=== PATIENT | female | born 1995 | race Hispanic/Latino ===

== ENCOUNTER 2020-11-14 02:45 | Emergency (ER) | payer MEDICAID ==
[2020-11-14 02:54] VITALS: BP 115/87
--- NOTE | 2020-11-14 05:12 | Event Note ---
ED Screening Note Date of service: 11/14/20 Time: 05:11 ED Screening Note: 25-year-old female patient with history of hypothyroidism, PTSD, and recurrent migraines presents to the emergency department with complaints of headache with associated nausea for 1 week. Patient states this headache has been occurring primarily at nighttime and is consistent with prior migraine headaches. Patient recently relocated to the area and is in the process of establishing care with a neurologist. Unsure if . General: Awake, appropriately interactive, no acute distress. Neck: Supple. Full range of motion intact. Cardiovascular: Normal peripheral perfusion. Pulmonary: No respiratory distress. Patient is speaking normally without use of accessory muscles. Skin: No apparent rashes or lesions. Neurological: No facial asymmetry. Speech is clear. Follows commands. Patient is alert and oriented. Musculoskeletal: Moves all four extremities spontaneously with normal range of motion. Psych: Cooperative. Appropriate mood and affect. I have greeted and performed a focused rapid initial assessment of this patient. A comprehensive ED assessment and evaluation of the patient, analysis of all test results, and completion of the medical decision-making process will be conducted by additional ED providers. This initial assessment/diagnostic orders/clinical plan/treatment(s) is/are subject to change based on patients health status, clinical progression and re-assessment. Further treatment and workup at subsequent clinical provider's discretion. Patient/guardian urged not to elope from the ED as their condition may be serious if not clinically assessed and managed.
[2020-11-14 06:25] LABS: HCG Qualitative,Urine Negative (Negative)
--- NOTE | 2020-11-14 07:06 | Emergency Department Report ---
ED Headache HPI - General Chief Complaint: Headache Stated Complaint: MIGRAINE/NAUSEA Time Seen by Provider: 11/14/20 06:55 - History of Present Illness Initial Comments: 25-year-old female patient with history of hypothyroidism, PTSD, and recurrent migraines presents to the emergency department with complaints of headache with associated nausea for 1 week. Patient states this headache has been occurring primarily at nighttime and is consistent with prior migraine headaches. Patient recently relocated to the area and is in the process of establishing care with a neurologist. Unsure if . Patient states she usually takes Excedrin but has not taken anything in months. Patient states she did not have any money to take Excedrin. Patient is sleeping comfortably in room 45, snoring and had to arouse her to wake up. Patient has had no episodes of vomiting. Able to sleep comfortably. Allergies/Adverse Reactions: Allergies pork derived (porcine) Allergy (Verified 11/14/20 02:49) Unknown shellfish derived Allergy (Verified 11/14/20 02:49) Unknown ED Review of Systems ROS: Stated complaint: MIGRAINE/NAUSEA Other details as noted in HPI Comment: All other systems reviewed and negative ED Past Medical Hx - Past Medical History Previous Medical History?: Yes Hx Psychiatric Treatment: Yes (PTSD/) Additional medical history: Hypothyroidism - Surgical History Past Surgical History?: No ED Physical Exam - General Limitations: No Limitations General appearance: alert, in no apparent distress, other (Sleeping and snoring at the same time, but easily arousable) - Head Head exam: Present: atraumatic, normal inspection - Eye Eye exam: Present: normal appearance - ENT ENT exam: Present: normal external ear exam - Neck Neck exam: Present: normal inspection, full ROM - Respiratory Respiratory exam: Absent: respiratory distress, accessory muscle use - Cardiovascular Cardiovascular Exam: Present: regular rate - Neurological Exam Neurological exam: Present: alert, oriented X3, CN II-XII intact, normal gait - Expanded Neurological Exam Expanded Cranial nerves: EOM's Intact: Normal, Gag Reflex: Normal, Tongue Deviation: Normal, Nystagmus: Normal, Facial Sensation: Normal, Facial Palsy with Forehead Movement: Normal, Facial Palsy without Forehead Movement: Normal Cerebellar function: Finger to Nose: Normal, Heel to Jose: Normal, Romberg: Normal Upper motor neuron: Lul Neglect: Normal, Pronator Drift: Normal, Babinski Sign: Normal, Sensory Extinction: Normal Sensory exam: Upper Extremity Light Touch: Normal, Upper Extremity Pin Prick: Normal, Upper Extremity Temperature: Normal, UE 2 Point Discrimination: Normal, Lower Extremity Light Touch: Normal, Lower Extremity Pin Prick: Normal, Lower Extremity Temperature: Normal, LE 2 Point Discrimination: Normal Motor strength exam: RUE: 4, LUE: 4, RLE: 4, LLE: 4 Best Eye Response ([place]): (4) open spontaneously Best Motor Response ([place]): (6) obeys commands Best Verbal Response ([place]): (5) oriented [place] Total: 15 - Psychiatric Psychiatric exam: Present: normal affect - Skin Skin exam: Present: warm, dry, intact, normal color. Absent: rash ED Course Vital Signs 11/14/20 02:52 Temperature 98.4 F Pulse Rate 79 Respiratory 19 Rate Blood Pressure 115/87 ED Medical Decision Making - Medical Decision Making 25-year-old female patient with history of hypothyroidism, PTSD, and recurrent migraines presents to the emergency department with complaints of headache with associated nausea for 1 week. Patient states this headache has been occurring primarily at nighttime and is consistent with prior migraine headaches. Patient recently relocated to the area and is in the process of establishing care with a neurologist. Unsure if . Patient cannot recall maximal intensity of headache. She denies worst headache of her life. She denies any injury to her head. Nothing makes it worse. Taking her migraine medication does help but she has not taken it. Patient states she usually takes Excedrin but has not taken anything in months. Patient states she did not have any money to take Excedrin. Patient is sleeping comfortably in room 45, snoring and had to arouse her to wake up. Patient has had no episodes of vomiting. Able to sleep comfortably. Critical care attestation.: If time is entered above; I have spent that time in minutes in the direct care of this critically ill patient, excluding procedure time. ED Disposition Clinical Impression: Headache Disposition: DC-01 TO HOME OR SELFCARE Is pt being admited?: No Does the pt Need Aspirin: No Condition: Stable Additional Instructions: Take [id number] Excedrin or ibuprofen for your headache. Follow-up with a primary care provider. Referrals: PRIMARY MD ERIN [Primary Care Provider] - 3-5 Days [facility] [Provider Group] - 3-5 Days
[2020-11-14] MEDS ORDERED: IBUPROFEN 600 MG TAB PO ONE (07:10)
== END 2020-11-14 09:08 | disposition home or self-care (01) ==
LOC: ED 02:45
DX: R51.9 Headache, unspecified (principal); F43.10 Post-traumatic stress disorder, unspecified; E03.9 Hypothyroidism, unspecified; X58.XXXA Exposure to other specified factors, initial encounter; Y93.89 Activity, other specified; Y92.89 Other specified places as the place of occurrence of the external cause; Y99.8 Other external cause status
CPT/HCPCS: 81025; 99283

== ENCOUNTER 2020-11-30 14:44 | Emergency (ER) | payer MEDICAID ==
[2020-11-30 15:21] VITALS: BP 128/82
[2020-11-30] MEDS ORDERED: ONDANSETRON 4 MG ODT TAB PO ONE (16:14)
--- NOTE | 2020-11-30 16:14 | Event Note ---
ED Screening Note ED Screening Note: n/v/d that began 3 days ago +sick contact with cough occ dry cough +SOB no fever no COVID vaccine PMHx hashimotos thyroiditis, PTSD, panic attack, MDD no allergies to meds currently on menstrual cycle This initial assessment/diagnostic orders/clinical plan/treatment(s) is/are subject to change based on patients health status, clinical progression and re- assessment by fellow clinical providers in the ED. Further treatment and workup at subsequent clinical providers discretion. Patient/guardian urged not to elope from the ED as their condition may be serious if not clinically assessed and managed. Initial orders include: labs, xr
[2020-11-30] MEDS ORDERED: ONDANSETRON 4 MG ODT TAB ONE (16:15)
[2020-11-30 17:06] LABS: Basophils % (Auto) 0.5 % (0.0-1.8); Eosinophils % (Auto) 0.6 % (0.0-4.3); Hematocrit 49.7 % (30.3-42.9); Hemoglobin 16.2 gm/dl (10.1-14.3); Lymphocytes # (Auto) 2.4 K/mm3 (1.2-5.4); Lymphocytes % (Auto) 29.5 % (13.4-35.0); Mean Corpuscular HGB Conc 33 % (30-34); Mean Corpuscular Volume 77 fl (79-97); Monocytes # (Auto) 0.6 K/mm3 (0.0-0.8); Monocytes % (Auto) 7.4 % (0.0-7.3); Platelet Count 370 K/mm3 (140-440); Red Blood Count 6.44 M/mm3 (3.65-5.03); Red Cell Distribution Width 15.2 % (13.2-15.2)
[2020-11-30 17:37] LABS: Alanine Aminotransferase 112 units/L (7-56); Albumin 4.3 g/dL (3.9-5); BUN/Creatinine Ratio 10; Blood Urea Nitrogen 9 mg/dL (7-17); Calcium 9.6 mg/dL (8.4-10.2); Hemolysis Index 7
--- NOTE | 2020-11-30 18:17 | XRay Report ---
CHEST PA AND LATERAL VIEWS INDICATION: cough, SOB. COMPARISON: None. FINDINGS: Support devices: None. Heart: Within normal limits. Lungs/Pleura: There is subtle airspace disease in the right upper lobe. There may be mild airspace di sease in the right lower lobe as well. No pleural abnormality. IMPRESSION: 1. Subtle right lower lobe airspace disease is concerning for pneumonia. There is also questionable p neumonia in the right lung base. Signer Name: Jean Vela MD Signed: 11/30/2020 6:12 PM Workstation Name: [id number]
--- NOTE | 2020-11-30 18:51 | Emergency Department Report ---
ED General Adult HPI - General Chief complaint: Nausea/Vomiting/Diarrhea Stated complaint: NAUSEA/VOMITING Time Seen by Provider: 11/30/20 16:11 Source: patient Mode of arrival: Ambulatory Limitations: No Limitations - History of Present Illness Initial comments: 25-year-old female patient with a history of Taylor's thyroiditis, PTSD, anxiety disorder, and MDD presents with complaints of a dry cough and shortness of breath for the past 8 to 9 days and nausea/vomiting/diarrhea x3 days. She denies any hematemesis/coffee-ground emesis, abdominal pain, melena/hematochezia, or fever. No recent known sick contacts. Patient does admit to 1 day of loss of taste and smell. She has not been tested for Covid or receive the Covid vaccine. She denies any chest pain or hemoptysis. - Related Data Previous Rx's Medication Instructions Recorded Last Taken Type Amoxicillin/Potassium Clav 1 each PO BID 10 Days #20 tablet 11/30/20 Unknown Rx [Augmentin 875-125 Tablet] Azithromycin [Zithromax Z-ALLAN] 0 mg PO DAILY 5 Days #6 tab 11/30/20 Unknown Rx Promethazine HCl [Promethazine TAB] 12.5 - 25 mg PO [id number] PRN #20 tab 11/30/20 Unknown Rx predniSONE [Deltasone] 20 mg PO QDAY 3 Days #3 tab 11/30/20 Unknown Rx Allergies Allergy/AdvReac Type Severity Reaction Status Date / Time pork derived (porcine) Allergy Unknown Verified 11/30/20 15:17 shellfish derived Allergy Unknown Verified 11/30/20 15:17 ED Review of Systems ROS: Stated complaint: NAUSEA/VOMITING Other details as noted in HPI Constitutional: chills, malaise, weakness. denies: diaphoresis, fever ENT: denies: throat pain Respiratory: cough, shortness of breath Cardiovascular: denies: chest pain, edema, paroxysmal nocturnal dyspnea Gastrointestinal: nausea, vomiting, diarrhea. denies: abdominal pain, constipa tion, hematemesis, melena, hematochezia ED Past Medical Hx - Past Medical History Hx Psychiatric Treatment: Yes (PTSD/) Additional medical history: Hypothyroidism/CHRONIC BACK - Surgical History Past Surgical History?: No - Social History Smoking Status: Current Some Day Smoker Substance Use Type: None - Medications Home Medications: Home Medications Medication Instructions Recorded Confirmed Last Taken Type Amoxicillin/Potassium Clav 1 each PO BID 10 Days #20 tablet 11/30/20 Unknown Rx [Augmentin 875-125 Tablet] Azithromycin [Zithromax Z-ALLAN] 0 mg PO DAILY 5 Days #6 tab 11/30/20 Unknown Rx Promethazine HCl [Promethazine TAB] 12.5 - 25 mg PO [id number] PRN #20 tab 11/30/20 Unknown Rx predniSONE [Deltasone] 20 mg PO QDAY 3 Days #3 tab 11/30/20 Unknown Rx ED Physical Exam - General Limitations: No Limitations General appearance: alert, in no apparent distress, obese - Head Head exam: Present: atraumatic, normocephalic - Eye Eye exam: Present: normal appearance. Absent: scleral icterus - Respiratory Respiratory exam: Present: normal lung sounds bilaterally. Absent: respiratory distress - Cardiovascular Cardiovascular Exam: Present: regular rate, normal rhythm - GI/Abdominal GI/Abdominal exam: Present: soft, normal bowel sounds. Absent: distended, tenderness, guarding, rebound, rigid - Extremities Exam Extremities exam: Present: full ROM - Back Exam Back exam: Present: full ROM - Neurological Exam Neurological exam: Present: alert, oriented X3 - Psychiatric Psychiatric exam: Present: normal affect, normal mood - Skin Skin exam: Present: warm, dry, intact, normal color. Absent: rash ED Course Vital Signs 11/30/20 15:20 Temperature 98.0 F Pulse Rate 93 H Respiratory 18 Rate Blood Pressure 128/82 O2 Sat by Pulse 98 Oximetry ED Medical Decision Making - Lab Data Result diagrams: 11/30/20 16:35 11/30/20 16:35 Lab Results 11/30/20 11/30/20 11/30/20 Range/Units 16:35 16:35 16:35 WBC 8.1 (4.5-11.0) K/mm3 RBC 6.44 H (3.65-5.03) M/mm3 Hgb 16.2 H (10.1-14.3) gm/dl Hct 49.7 H (30.3-42.9) % MCV 77 L (79-97) fl MCH 25 L (28-32) pg MCHC 33 (30-34) % RDW 15.2 (13.2-15.2) % Plt Count 370 (140-440) K/mm3 Lymph % (Auto) 29.5 (13.4-35.0) % Davidson % (Auto) 7.4 H (0.0-7.3) % Eos % (Auto) 0.6 (0.0-4.3) % Baso % (Auto) 0.5 (0.0-1.8) % Lymph # (Auto) 2.4 (1.2-5.4) K/mm3 Davidson # (Auto) 0.6 (0.0-0.8) K/mm3 Eos # (Auto) 0.0 (0.0-0.4) K/mm3 Baso # (Auto) 0.0 (0.0-0.1) K/mm3 Seg Neutrophils % 62.0 (40.0-70.0) % Seg Neutrophils # 5.0 (1.8-7.7) K/mm3 Sodium 143 (137-145) mmol/L Potassium 3.7 (3.6-5.0) mmol/L Chloride 105.8 (98-107) mmol/L Carbon Dioxide 20 L (22-30) mmol/L Anion Gap 21 mmol/L BUN 9 (7-17) mg/dL Creatinine 0.9 (0.6-1.2) mg/dL Estimated GFR > 60 ml/min BUN/Creatinine Ratio 10 % Glucose 99 (65-100) mg/dL Calcium 9.6 (8.4-10.2) mg/dL Total Bilirubin 0.70 (0.1-1.2) mg/dL AST 60 H (5-40) units/L ALT 112 H (7-56) units/L Alkaline Phosphatase 113 (35-129) units/L Total Protein 8.2 (6.3-8.2) g/dL Albumin 4.3 (3.9-5) g/dL Albumin/Globulin Ratio 1.1 % Lipase 26 (13-60) units/L HCG, Qual Negative (Negative) - Radiology Data Radiology results: report reviewed CHEST PA AND LATERAL VIEWS INDICATION: cough, SOB. COMPARISON: None. FINDINGS: Support devices: None. Heart: Within normal limits. Lungs/Pleura: There is subtle airspace disease in the right upper lobe. There may be mild airspace disease in the right lower lobe as well. No pleural abnormality. IMPRESSION: 1. Subtle right lower lobe airspace disease is concerning for pneumonia. There is also questionable pneumonia in the right lung base. - Medical Decision Making 25-year-old female patient with a history of Taylor's thyroiditis, PTSD, anxiety disorder, and MDD presents with complaints of a dry cough and shortness of breath for the past 8 to 9 days and nausea/vomiting/diarrhea x3 days. She denies any hematemesis/coffee-ground emesis, abdominal pain, melena/hematochezia, or fever. No recent known sick contacts. Patient does admit to 1 day of loss of taste and smell. She has not been tested for Covid or receive the Covid vaccine. She denies any chest pain or hemoptysis. Anion gap noted to be 21 and mildly elevated liver enzymes noted. White count is normal CBC. No tenderness of the abdomen noted on exam. Lungs are clear x- ray shows bilateral pneumonia. Given patient's history and labs, suspect COVID- 19 infection. Recommend patient follows up outpatient for testing. Patient ambulated and pulse ox remained at 100% on room air. Vitals are normal. She is stable for discharge home. Discussed importance of self quarantine, plan of care, and signs and symptoms that should prompt immediate return to the emergency department in detail patient verbalized understanding. Critical care attestation.: If time is entered above; I have spent that time in minutes in the direct care of this critically ill patient, excluding procedure time. ED Disposition Clinical Impression: Person under investigation for COVID-19, Community acquired pneumonia, bilateral Disposition: 01 HOME / SELF CARE / HOMELESS Is pt being admited?: No Condition: Stable Instructions: Bacterial Pneumonia (ED), Community-Acquired Pneumonia, Adult, [id number], Rehydration, Adult, COVID-19, Prevent the Spread of COVID-19 if You Are Sick - [facility] Additional Instructions: .Please take daily vitamin C and zinc to help fight the COVID-19 virus. High water intake also recommended along with Pedialyte for rehydration Prescriptions: Promethazine HCl [Promethazine TAB] 12.5 - 25 mg PO [id number] PRN #20 tab PRN Reason: Nausea Amoxicillin/Potassium Clav [Augmentin 875-125 Tablet] 1 each PO BID 10 Days #20 tablet predniSONE [Deltasone] 20 mg PO QDAY 3 Days #3 tab Azithromycin [Zithromax Z-ALLAN] 0 mg PO DAILY 5 Days #6 tab Referrals: PRIMARY CARE, [Referring] - 3-5 Days Forms: Work/School Release Form(ED)
[2020-11-30] MEDS ORDERED: SODIUM CHLORIDE 0.9% 1000 ML 1,000 ML IV ONE (18:53)
== END 2020-11-30 21:30 | disposition home or self-care (01) ==
LOC: ED 14:44
DX: J18.8 Other pneumonia, unspecified organism (principal); Z20.822 Contact with and (suspected) exposure to COVID-19; F43.10 Post-traumatic stress disorder, unspecified; E03.9 Hypothyroidism, unspecified; F17.200 Nicotine dependence, unspecified, uncomplicated; M54.9 Dorsalgia, unspecified; Z91.013 Allergy to seafood; Z91.018 Allergy to other foods
CPT/HCPCS: 36415; 71046; 80053; 83690; 84703; 85025; 96360; 99284; J7030; Q0162

== ENCOUNTER 2020-12-03 11:29 | Emergency (ER) | payer MEDICAID ==
[2020-12-03 12:22] VITALS: BP 140/91
--- NOTE | 2020-12-03 12:39 | Emergency Department Report ---
ED Shortness of Breath HPI - General Chief Complaint: Dyspnea/Respdistress Stated Complaint: SOB Time Seen by Provider: 12/03/20 12:39 Source: patient, EMS, old records reviewed Mode of arrival: Ambulatory Limitations: No Limitations - History of Present Illness Initial Comments: 25-year-old female with a past medical history of Taylor thyroiditis and tobacco use presents to the ER today with complaints of shortness of breath. Patient states that she has always had some issues with "difficulty breathing, but she states that she noticed over the past couple days she has had increased shortness of breath. She reports associated mild dry productive cough, rhinorrhea nasal congestion. She denies any fever or chills. She also reports difficulty eating because it is hard to breathe when she eats at the same time. She reports no apparent ill contacts or recent travel. She denies any chest pain, abdominal pain, UTI symptoms, lower extremity swelling, or calf pain. She reports no nausea or vomiting since she was last seen. Patient was seen here on November 30, 2020 for similar symptoms. At that time she had lab work and a chest x-ray done. Patient was diagnosed with suspected Covid and pneumonia and was discharged home in stable condition with Phenergan, Augmentin, Z-Allan and prednisone. Patient returns today stating that she was unable to get her medications. Patient states that she typically lives in a correction. She states that her past that has been helping her out, and she did give the prescriptions to her printed circuit photographer to get filled, but she states that she has not been able to get a hold of her printed circuit photographer to go get the prescription picked up from the pharmacy and she has no one else who can help her get the prescriptions. She states that she is currently at a hotel during her quarantine. She also has not been able to go get a COVID-19 test done. Complaint: shortness of breath -: Gradual - Related Data Previous Rx's Medication Instructions Recorded Last Taken Type Amoxicillin/Potassium Clav 1 each PO BID 10 Days #20 tablet 11/30/20 Unknown Rx [Augmentin 875-125 Tablet] Azithromycin [Zithromax Z-ALLAN] 0 mg PO DAILY 5 Days #6 tab 11/30/20 Unknown Rx Promethazine HCl [Promethazine TAB] 12.5 - 25 mg PO [id number] PRN #20 tab 11/30/20 Unknown Rx predniSONE [Deltasone] 20 mg PO QDAY 3 Days #3 tab 11/30/20 Unknown Rx Allergies Allergy/AdvReac Type Severity Reaction Status Date / Time pork derived (porcine) Allergy Unknown Verified 11/30/20 15:17 shellfish derived Allergy Unknown Verified 11/30/20 15:17 ED Review of Systems ROS: Stated complaint: SOB Other details as noted in HPI Comment: All other systems reviewed and negative Constitutional: denies: chills, fever Eyes: denies: eye pain, eye discharge, vision change ENT: denies: ear pain, throat pain Respiratory: shortness of breath, SOB with exertion, SOB at rest. denies: cough, wheezing Cardiovascular: denies: chest pain, palpitations Endocrine: no symptoms reported Gastrointestinal: denies: abdominal pain, nausea, vomiting, diarrhea, constipation, hematemesis, melena, hematochezia Genitourinary: denies: urgency, dysuria, discharge Musculoskeletal: denies: back pain, joint swelling, arthralgia Skin: denies: rash, lesions, change in color, change in hair/nails, pruritus Neurological: denies: headache, weakness, numbness, paresthesias, confusion, abnormal gait, vertigo Psychiatric: denies: anxiety, depression, auditory hallucinations, visual hallucinations, homicidal thoughts, suicidal thoughts Hematological/Lymphatic: denies: easy bleeding, easy bruising ED Past Medical Hx - Past Medical History Previous Medical History?: Yes Hx Psychiatric Treatment: Yes (PTSD/) Additional medical history: Hypothyroidism/CHRONIC BACK - Surgical History Past Surgical History?: No - Social History Smoking Status: Current Every Day Smoker Substance Use Type: Alcohol, Marijuana - Medications Home Medications: Home Medications Medication Instructions Recorded Confirmed Last Taken Type Amoxicillin/Potassium Clav 1 each PO BID 10 Days #20 tablet 11/30/20 Unknown Rx [Augmentin 875-125 Tablet] Azithromycin [Zithromax Z-ALLAN] 0 mg PO DAILY 5 Days #6 tab 11/30/20 Unknown Rx Promethazine HCl [Promethazine TAB] 12.5 - 25 mg PO [id number] PRN #20 tab 11/30/20 Unknown Rx predniSONE [Deltasone] 20 mg PO QDAY 3 Days #3 tab 11/30/20 Unknown Rx ED Physical Exam - General Limitations: No Limitations General appearance: alert, in no apparent distress, obese - Head Head exam: Present: atraumatic, normocephalic, normal inspection - Eye Eye exam: Present: normal appearance, PERRL, EOMI Pupils: Present: normal accommodation - Neck Neck exam: Present: normal inspection, full ROM. Absent: meningismus - Respiratory Respiratory exam: Present: normal lung sounds bilaterally, rhonchi (mild left lung kirby ). Absent: respiratory distress, wheezes, rales - Cardiovascular Cardiovascular Exam: Present: regular rate, normal rhythm, normal heart sounds - Extremities Exam Extremities exam: Present: normal inspection, full ROM. Absent: pedal edema, calf tenderness - Neurological Exam Neurological exam: Present: alert, oriented X3, CN II-XII intact, normal gait - Psychiatric Psychiatric exam: Present: normal affect, normal mood - Skin Skin exam: Present: intact ED Course Vital Signs 12/03/20 12:21 Temperature 98.6 F Pulse Rate 89 Respiratory 18 Rate Blood Pressure 140/91 O2 Sat by Pulse 95 Oximetry ED Medical Decision Making - Medical Decision Making 25-year-old female with a past medical history of Taylor thyroiditis and tobacco use presents to the ER today with complaints of shortness of breath. Patient states that she has always had some issues with "difficulty breathing, but she states that she noticed over the past couple days she has had increased shortness of breath. She reports associated mild dry productive cough, rhinorrhea nasal congestion. She denies any fever or chills. She also reports difficulty eating because it is hard to breathe when she eats at the same time. She reports no apparent ill contacts or recent travel. She denies any chest pain, abdominal pain, UTI symptoms, lower extremity swelling, or calf pain. She reports no nausea or vomiting since she was last seen. Patient was seen here on November 30, 2020 for similar symptoms. At that time she had lab work and a chest x-ray done. Patient was diagnosed with suspected Covid and pneumonia and was discharged home in stable condition with Phenergan, Augmentin, Z-Allan and prednisone. Patient returns today stating that she was unable to get her medications. Patient states that she typically lives in a correction. She states that her past that has been helping her out, and she did give the prescriptions to her printed circuit photographer to get filled, but she states that she has not been able to get a hold of her printed circuit photographer to go get the prescription picked up from the pharmacy and she has no one else who can help her get the prescriptions. She states that she is currently at a hotel during her quarantine. She also has not been able to go get a COVID-19 test done. 1246: Patient was ambulated by myself in the ER, patient oxygen maintained between 94% and 97% on RA while ambulating. She did not appear to be in any significant respiratory distress. She was able to ambulate with a normal gait. Patient does not appear toxic nor does she appear ill appearing or dehydrated. Other than some mild rhonchi in the left lung kirby her chest was otherwise clear to auscultation. She has no lower extremity swelling or calf tenderness. Her vs are stable. Her PERC score at this time is 0. I suspect that patient likely has Covid but she does not meet admission criteria. Repeat testing not indicated at this time. I am not concerned for PE, acute coronary syndrome, CHF, or sepsis at this time. Informed patient I understand her difficult situation in terms of getting the medication, offered to give her a dose of the medications here but she is going to have to try and find with the pharmacy to get her medications picked up and also to get a COVID-19 test. Recommend that she continues to quarantine. Critical care attestation.: If time is entered above; I have spent that time in minutes in the direct care of this critically ill patient, excluding procedure time. ED Disposition Clinical Impression: Community acquired pneumonia, bilateral Disposition: 01 HOME / SELF CARE / HOMELESS Is pt being admited?: No Does the pt Need Aspirin: No Condition: Stable Instructions: COVID-19: How to Protect Yourself and Others - CDC, Community- Acquired Pneumonia, Adult, [id number], Prevent the Spread of COVID-19 if You Are Sick - CDC, Bacterial Pneumonia (ED) Additional Instructions: I recommend that you try to get away to the pharmacy to sweet pickle maker your prescriptions and also get a COVID-19 test. Continue to quarantine for the next 10 to 14 days. Follow-up with one of the local primary care doctors listed on your discharge instructions. Return to the ER if your symptoms changes or worsens in any way. Referrals: [facility] [Provider Group] - 7-10 days DARNELL SAMANIEGO MD [Staff Physician] - 7-10 days Time of Disposition: 12:55
[2020-12-03] MEDS ORDERED: AMOXICILLIN/K CLAV 875/125MG TAB PO ONE (12:56)
[2020-12-03] MEDS ORDERED: AZITHROMYCIN 250 MG TAB PO ONE (12:56)
[2020-12-03] MEDS ORDERED: predniSONE 20 MG TAB PO ONE (12:56)
== END 2020-12-03 13:20 | disposition home or self-care (01) ==
LOC: ED 11:29
DX: J18.8 Other pneumonia, unspecified organism (principal); F43.10 Post-traumatic stress disorder, unspecified; F17.290 Nicotine dependence, other tobacco product, uncomplicated; Z91.013 Allergy to seafood; Z91.018 Allergy to other foods
CPT/HCPCS: 99283; J7512